=== PATIENT | male | born 1985 | race Caucasian/White ===

== ENCOUNTER 2025-04-09 08:45 | Emergency (ER) | payer MEDICAID, SELFPAY ==
[2025-04-09 08:47] VITALS: BP 131/61; PULSE 75; RESP 15; TEMP 36.7; O2SAT 100
--- NOTE | 2025-04-09 09:00 | DI.CT_ITS ---
Exam(s) CT HEAD W EXAM: CT HEAD W CLINICAL HISTORY: right sided scalp cyst vs abscess?. TECHNIQUE: Imaging Protocol: Axial computed tomography images with coronal and sagittal reformatted images were created and reviewed. CONTRAST MATERIAL: Intravenous: Omnipaque 350 contrast volume:100 mL COMPARISON: No exams were available for comparison FINDINGS: Ventricles and Extra axial spaces: Normal in size and morphology for the patient's age. Hemorrhage: None. Cerebral parenchyma: Normal. Enhancement: No suspicious enhancement. [place]: Unremarkable. Midline shift: None. Brainstem/Cerebellum: Normal. Calvarium: Normal. Visualized Paranasal sinuses/Mastoids: Clear. Soft tissues: There is a peripherally enhancing fluid collection in the scalp overlying the right parietal bone. It measures 3.8 cm long by 2.7 cm AP x 1.8 cm transverse. The underlying bone is unremarkable. The findings are suspicious for a subcutaneous abscess. IMPRESSION: 1. No intracranial abnormality is seen. 2. 3.8 x 2.7 x 1.8 cm peripherally enhancing fluid collection in the subcutaneous tissues overlying the right parietal bone suspicious for an abscess. 3. No evidence to suggest osteomyelitis. 4. Findings were discussed with Dr. Jose at 10:55 a.m. on 04/09/2025. RADIATION DOSE DELIVERED: 1,857.39mGy.cm Total DLP 1,857.39mGy.cm Total DLP DATA REPOSITORY: All CT scans at this facility are submitted to the National Radiology Data Registry (NRDR) Dose Index Registry (DIR) with the [employer] ([employer]). RADIATION OPTIMIZATION: All CT scans at this facility use at least one of these dose optimization techniques: automated exposure control; mA and/or kV adjustment per patient size (includes targeted exams where dose is matched to clinical indication); or iterative reconstruction.
--- NOTE | 2025-04-09 09:00 | DI.RAD_ITS ---
Exam(s) XR TIB/FIB LT EXAM: XR TIB/FIB LT CLINICAL HISTORY: medial distal redness/lesion. TECHNIQUE: 2D digital imaging was performed of the left tibia and fibula. Three images were obtained. AP and lateral views were obtained. COMPARISON: No exams were available for comparison FINDINGS: BONES: No acute fracture is present. No bony destructive lesion is seen. Visualized portion of knee and ankle joints are unremarkable. SOFT TISSUE: There are dystrophic calcifications anterior to the proximal tibia likely of no clinical significance. No radiopaque foreign bodies or soft tissue gas is seen. IMPRESSION: Unremarkable radiographs of the left tibia and fibula. DATA REPOSITORY: RADIATION DOSE DELIVERED:
--- NOTE | 2025-04-09 09:04 | W.ED.GENAD ---
Discharge Plan Disposition Patient Disposition: Home Condition: Stable Discharge Details Clinical Impression: Abscess of scalp, Leg wound, left Primary Care Provider: None,None ED Provider: John Jose Home Meds and New Rx's Prescriptions: New sulfamethoxazole-trimethoprim [Bactrim DS] 800-160 mg tablet 1 tab PO BID Qty: 14 0RF amoxicillin-pot clavulanate 875-125 mg tablet 1 tab PO BID Qty: 14 0RF Discharge Instructions Additional Instructions: You had an abscess that was drained. Take the antibiotics as prescribed for that as well as the wound infection on your leg. Your liver function tests were elevated so I sent a hepatitis panel, that takes a few days to return results. I recommend following up with your primary care provider or express care if you are not improving within a week. If you feel significantly more ill or have new symptoms such as high fevers return to the emergency department for reevaluation. HPI General Mode of arrival: ambulatory. Date/Time Provider Initiated Documentation: 04/09/25 08:46. Limitations to Documentation: no limitations. Information obtained by: patient. History of Present Illness 39 year old M presents to the emergency department with the chief complaint of left leg lesion, right sided scalp swelling, described as moderate, Patient started experiencing this month(s) (1) and it has been constant. No relieving factors improve symptom(s), No exacerbating factors reported . Patient notes denies fever/chills. Patient did receive the following treatments prior to arrival, none Related Data Home Medications ?Medication ?Instructions ?Recorded ?Confirmed amoxicillin 875 mg-potassium 1 tab PO BID #14 tabs 04/09/25 clavulanate 125 mg tablet sulfamethoxazole 800 1 tab PO BID #14 tabs 04/09/25 mg-trimethoprim 160 mg tablet (Bactrim DS) Previous Rx's ?Medication ?Instructions ?Recorded amoxicillin 875 mg-potassium 1 tab PO BID #14 tabs 04/09/25 clavulanate 125 mg tablet sulfamethoxazole 800 1 tab PO BID #14 tabs 04/09/25 mg-trimethoprim 160 mg tablet (Bactrim DS) Allergies Allergy/AdvReac Type Severity Reaction Status Date / Time No Known Allergies Allergy Unverified 04/09/25 08:52 General Stated Complaint: RashLesion ELI: 3 Review of Systems All systems reviewed & are unremarkable except as noted in HPI and below Constitutional Constitutional: Denies chills, Denies fever(s) and Denies weakness Cardiovascular Cardiovascular: Denies chest pain and Denies dyspnea Respiratory Respiratory: Denies cough and Denies dyspnea Gastrointestinal Gastrointestinal: Denies abdominal pain, Denies nausea and Denies vomiting Integumentary/Breasts Skin/Breast: Reports rash Neurologic Neurologic: Denies weakness Psychiatric Psychiatric: Denies depression Exam Const General: no acute distress Orientation: alert HENMT Head: scalp lesion Ears: external ears normal General nose exam: external nose normal Mouth: moist mucous membranes Eyes General: appearance normal, both eyes and all related structures Neck Neck: no lymphadenopathy and no meningeal signs Resp Effort & Inspection: normal respiratory effort and able to speak in complete sentences Cardio Rate: regular rate Skin Wounds: wounds noted Neuro General: patient alert and patient oriented x3 Psych Mental Status: mental status grossly normal Course Vital Signs Vital signs: Vital Signs Temperature 36.7 C 04/09/25 08:47 Pulse 75 04/09/25 08:47 Respiratory Rate 15 04/09/25 08:47 Blood Pressure 131/61 04/09/25 08:47 Pulse Oximetry 100 04/09/25 08:47 Temperature 36.7 C 04/09/25 08:47 Temperature Source Tympanic 04/09/25 08:47 Pulse 75 04/09/25 08:47 Respiratory Rate 15 04/09/25 08:47 Blood Pressure 131/61 04/09/25 08:47 Blood Pressure Position Sitting 04/09/25 08:47 Pulse Oximetry 100 04/09/25 08:47 Oxygen Delivery Method Room Air 04/09/25 08:47 Oxygen Flow Rate 0 04/09/25 08:47 Pain Level 8 04/09/25 08:47 Procedure Abscess Drainage Patient Consented: Verbally Location of Exam: Scalp Indication: Abscess. Local anesthetic: other anesthetic (topical LET), Procedure Prep: Surgical Mask, Chlohexidine and 11 blade. Technique used, incised with blade. Amount of fluid expressed (mL): 10. Irrigation: Irrigation used, Outcome: Sucessful. 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 He denies any fevers, chills, chest pain, difficulty breathing. He has multiple scabbed wounds on his extremities that appear to be either from picking or prior drug use areas. The lesion on his left lower medial distal leg is where he gives him a tattoo and it has a 2 to 3 cm ulcerated lesion with 3 cm of surrounding erythema. There is no tunneling. There is no crepitus. He has intact distal sensation and pulses. He has a right sided scalp lesion that is 2 x 3 cm feels firm on the right side of his scalp with a scab wound in the middle of it. There is no crepitus. Given these findings I am going to check a CBC, CMP and inflammatory markers and obtain an x-ray of the left lower leg and a CT of his head to evaluate for possible abscess. Patient with very mild leukocytosis, does have elevated LFTs so I added on hepatitis panel. X-ray of his tib-fib is unremarkable. I doubt osteo given he has no tunneling lesions. He has an abscess on his head CT but no ostial involvement or intracranial involvement. He gave verbal consent to drain the abscess which after cleaning with chlorhexidine and using an 11 blade I am opened it up and got copious amounts of purulent fluid. I will start him on Bactrim and Augmentin. He will follow-up with express care if not improving and return precautions given. Differential Diagnosis Differential Diagnosis: abscess, osteo, drug use Lab Data Lab results reviewed: Yes I reviewed the patient's lab results. [facility] All Active Problems (Updated 04/09/25 @ 11:53 by John Jose MD) Leg wound, left (Acute) Abscess of scalp (Acute) Social History Smoking/Tobacco Use Status: Current every day Tobacco Type: cigarettes Smoking risk assessment performed?: Yes Alcohol Intake: current Alcohol Intake frequency: holidays/special occasions only Drug use: Occasionally Substance use type: marijuana
[2025-04-09 09:35] LABS: Abs Immature Grans 0.03 10^3/uL (0.0-0.06); HCT 41.6 % (40.0-50.0); HGB 13.5 g/dL (13.5-17.5); Immature Grans % 0.2 %; MCH 27.3 pg (27.0-33.0); MCHC 32.5 % (32.0-36.0); MCV 84 fL (80-95); MPV 8.8 fL (8.0-11.0); Platelet Count 437 10^3/uL (130-400); RBC 4.94 10^6/uL (4.36-5.78); RDW 13.0 % (11.8-14.1); RDW-SD 39.6 fL; WBC 12.37 10^3/uL (4.4-10.8)
[2025-04-09 09:43] LABS: ESR 22 mm/hr (0-15)
[2025-04-09 09:50] LABS: ALT 81 U/L (16-63); AST 137 U/L (15-37); Albumin 3.3 g/dL (3.4-5.0); Alkaline Phosphatase 88 U/L (46-116); Anion Gap 7.2 mmol/L (3-11); BUN 17 mg/dL (7-18); Bilirubin, Total 0.4 mg/dL (0.2-1.0); C-Reactive Protein 3.63 mg/dL (<or=0.5); CO2 31.8 mmol/L (21.0-32.0); Calcium 8.9 mg/dL (8.5-10.1); Chloride 99 mmol/L (98-107); Estimated GFR 116.17 (mL/min/1.73m2); Glucose 64 mg/dL (74-106); Magnesium 2.2 mg/dL (1.8-2.4); Potassium 4.1 mmol/L (3.5-5.1); Sodium 138 mmol/L (136-145); Total Protein 9.0 g/dL (6.4-8.2)
[2025-04-09] MEDS: Omnipaque 350 MG/ML 100 ML BTL IJ (10:40)
[2025-04-09] MEDS: Normal Saline - Diluent 50 ML VIAL IJ (10:40)
[2025-04-09] MEDS: Normal Saline Flush 10 ML SYR IVP (10:41)
[2025-04-09 11:05] LABS: Glucose Negative (Negative)
[2025-04-09] MEDS: Lidocaine/Epinephri/Tetracaine Topical Gel 3 ML TP (11:06)
[2025-04-09 11:22] LABS: Cannabinoids THC Negative (Negative); METHADONE URINE SCREEN Negative (Negative)
[2025-04-09] MEDS: Amoxicillin 875/Clav. 125 TAB PO (12:05)
[2025-04-09] MEDS: Sulfameth/Trimeth DS TAB 1 TAB PO (12:05)
[2025-04-11 16:16] LABS: Hepatitis A Antibody IgM Negative (Negative); Hepatitis C Ab w Rflx HCV PCR Reactive (Negative)
[2025-04-14 14:22] LABS: HCV RNA Detection Quantitative 829000 IU/mL (Undetected); HCV RNA Qualitative Detected (Undetected)
== END 2025-04-09 12:10 | disposition home or self-care (01) ==
PROVIDERS: Emergency Provider Emergency Medicine
DX: S81.802A Unspecified open wound, left lower leg, initial encounter (principal); L02.811 Cutaneous abscess of head [any part, except face]; X58.XXXA Exposure to other specified factors, initial encounter
CPT/HCPCS: 99283 ×2; 10060; 36415; 80053; 80307; 85652; 86704; 86709; 86803; 87040; 87340; 87522; 70460; 73590; 81003; 83735; 85025; 86140; J3490